=== PATIENT | male | born 1980 | race Caucasian/White ===

== ENCOUNTER 2020-08-12 11:56 | Emergency (ER) | payer OTHER ==
[~2020-08-12] VITALS: Ht 177.8 cm; Wt 78.5 kg
[2020-08-12] MEDS ORDERED: ROSU5TAB5 PO (12:02)
[2020-08-12] MEDS ORDERED: IBUP-1114 PO (12:02)
[2020-08-12] MEDS ORDERED: GI COCKTAIL 50ML BTL(HYOSCYAMINE/MAALOX/LIDOCAINE VISCOUS)(1:3:1) PO ONE (12:15)
--- NOTE | 2020-08-12 12:21 | REP ---
INDICATION: CHEST PAIN. COMPARISON: None. TECHNIQUE: SINGLE PORTABLE AP VIEW OF THE CHEST WAS PERFORMED. FINDINGS: THERE IS NO ACUTE INFILTRATE OR PULMONARY EDEMA. LUNGS ARE CLEAR. HEART IS NOT SIGNIFICANTLY ENLARGED. MEDIASTINAL SILHOUETTE IS UNREMARKABLE. THE VISUALIZED OSSEOUS STRUCTURES ARE INTACT. IMPRESSION: NO ACUTE PULMONARY DISEASE. <Electronically signed by Marlon Medrano > 08/12/20 [id number]
[2020-08-12] MEDS ORDERED: ASPIRIN 325 MG TAB PO ONE (12:30)
[2020-08-12 12:31] LABS: BASO % 0.5 % (0.0-1.0); EOS # 0.1 10^3/uL (0.0-0.5); EOS % 1.4 % (0.0-3.0); HEMATOCRIT 45.7 % (42.0-52.0); HEMOGLOBIN 15.3 g/dl (13.5-17.5); LYMPH # 1.6 10^3/uL (1.5-5.0); MEAN CORPUSCULAR HGB CONC 33.5 g/dl (32.0-36.5); MEAN CORPUSCULAR VOLUME 92.5 fl (80.0-96.0); MONO # 0.5 10^3/uL (0.0-0.8); MONO % 7.8 % (2.0-8.0); NEUTROPHILS # 3.7 10^3/uL (1.5-8.5); PLATELET COUNT, AUTOMATED 245 10^3/uL (150-450); RED BLOOD COUNT 4.94 10^6/uL (4.30-6.10); WHITE BLOOD COUNT 5.9 10^3/uL (4.0-10.0)
[2020-08-12 13:00] LABS: BLOOD UREA NITROGEN 15 MG/DL (7-18); CALCIUM LEVEL 9.1 MG/DL (8.5-10.1); CARBON DIOXIDE LEVEL 31 MEQ/L (21-32); CHLORIDE LEVEL 106 MEQ/L (98-107); CK-MB VALUE MASS 1.4 NG/ML (<3.6); CPK CREATINE PHOSPHOKINASE 115 U/L (39-308); CREATININE FOR GFR 1.03 MG/DL (0.70-1.30); GLOMERULAR FILTRATION RATE > 60.0 (>60); GLUCOSE, FASTING 85 MG/DL (70-100); MB/CK RELATIVE INDEX 1.22 (< OR =4); SODIUM LEVEL 141 MEQ/L (136-145); TROPONIN I < 0.02 NG/ML (< 0.10)
[2020-08-12 13:15] VITALS: BP 123/81
[2020-08-12] MEDS ORDERED: PRIL20TA2 PO (13:16)
--- NOTE | 2020-08-13 00:21 | ECGEPIP ---
[facility] - ED Test Date: 2020-08-12 Pat Name: BERHANE TORRE Department: Room: - Gender: Male Senior Clinical Consultant: LILI : 1980 Requested By: DENA Shay Order Number: [id number] Reading MD: Wilbur Miles Measurements Intervals [place] Rate: 65 P: 55 SD: 146 QRS: 27 QRSD: 96 T: 26 QT: 394 QTc: 409 Interpretive Statements Normal sinus rhythm with sinus arrhythmia POOR R WAVE PROGRESSION NO PRIORS FOR COMPARISON Electronically Signed on 08-13-2020 0:21:17 EST by Wilbur Miles
== END 2020-08-12 13:26 | disposition home or self-care (01) ==
LOC: M ED 11:56
DX: K21.00 Gastro-esophageal reflux disease with esophagitis, without bleeding (principal); E78.5 Hyperlipidemia, unspecified; Z87.820 Personal history of traumatic brain injury

== ENCOUNTER → 2022-07-26 | Outpatient (CLI) | payer OTHER ==
[~2022-07-26] MED LIST: IBUP-1114 PO; PRIL20TA2 PO; ROSU5TAB5 PO
== END ==
LOC: M RAD 08:03
PROVIDERS: ATTEND Nurse Practitioner Family
DX: J34.2 Deviated nasal septum (principal); J32.0 Chronic maxillary sinusitis

== ENCOUNTER 2023-06-25 16:39 | Emergency (ER) | payer OTHER ==
[~2023-06-25] VITALS: Ht 175.3 cm; Wt 77.4 kg
[2023-06-25] MEDS ORDERED: OXYC-517 (16:50)
[2023-06-25] MEDS ORDERED: HYDR50TA70 (16:50)
[2023-06-25] MEDS ORDERED: BOOSTRIX VACCINE (TETANUS/DIPHTH/ACEL. PERTUSSIS) 0.5ML SYR IM ONE (18:00)
[2023-06-25] MEDS ORDERED: LIDOCAINE 2% MDV 20ML VIAL SC ONE (18:00)
[2023-06-25] MEDS ORDERED: CEPH500C PO (18:39)
[2023-06-25] MEDS ORDERED: CEPHALEXIN 500 MG CAP PO ONE (18:40)
[2023-06-25 18:58] VITALS: BP 135/75; TEMP 98.8; O2SAT 100
== END 2023-06-25 18:56 | disposition home or self-care (01) ==
LOC: M ED 16:39
DX: S60.551A Superficial foreign body of right hand, initial encounter (principal); W45.0XXA Nail entering through skin, initial encounter; E78.5 Hyperlipidemia, unspecified; Z79.2 Long term (current) use of antibiotics; Z79.899 Other long term (current) drug therapy; Y92.009 Unspecified place in unspecified non-institutional (private) residence as the place of occurrence of the external cause; Y93.89 Activity, other specified; Y99.9 Unspecified external cause status; Z23 Encounter for immunization

== ENCOUNTER 2023-09-26 08:43 | Day surgery (SDC) | payer OTHER ==
[~2023-09-26] VITALS: Ht 175.3 cm; Wt 77.3 kg
[~2023-09-26 08:43] MED LIST changes: +CEPH500C PO; +HYDR50TA70; +OXYC-517; +ROSU40TA4 PO
[2023-09-26] MEDS: LR 1,000 ML IV SCH ×2 (09:23→13:09)
[2023-09-26] MEDS ORDERED: MIDAZOLAM INJ 2MG/2ML VIAL As Ordered ONE (09:48)
[2023-09-26] MEDS ORDERED: fentaNYL 100 MCG/2 ML INJECTION As Ordered ONE (09:50)
[2023-09-26] MEDS ORDERED: LIDOCAINE 2% 100MG/5ML SDV (FOR ANES.) As Ordered ONE (09:53)
[2023-09-26] MEDS ORDERED: ONDANSETRON 4MG 2ML VIAL As Ordered ONE (09:53)
[2023-09-26] MEDS ORDERED: SUGAMMADEX SODIUM 500 MG/5 ML VIAL (BRIDION) As Ordered ONE (09:53)
[2023-09-26] MEDS ORDERED: propofoL 200 MG/20 ML VIAL As Ordered ONE (09:53)
[2023-09-26] MEDS ORDERED: ROCURONIUM BROMIDE 50MG/5ML VIAL As Ordered ONE (09:53)
[2023-09-26] MEDS ORDERED: HYDROmorphone HCL 2MG/ML 1ML VIAL As Ordered ONE (10:14)
[2023-09-26] MEDS: COCAINE 4% 4ML NASAL SOLUTION BTL As Ordered ONE (11:16)
[2023-09-26] MEDS ORDERED: ACETAMINOPHEN 1000MG 100ML IV BAG As Ordered ONE (11:17)
[2023-09-26] MEDS: LIDOCAINE W/EPINEPHRINE 1% 20ML VIAL As Ordered ONE (11:35)
[2023-09-26] MEDS: OXYMETAZOLINE 0.05% NASAL SPRAY (AFRIN) As Ordered ONE (12:16)
[2023-09-26] MEDS ORDERED: ONDANSETRON 4MG 2ML VIAL IV PRN (12:30)
[2023-09-26] MEDS ORDERED: METOCLOPRAMIDE INJ 10MG/2ML VIAL IV PRN (12:30)
[2023-09-26] MEDS ORDERED: fentaNYL 100 MCG/2 ML INJECTION IV PRN (12:30)
[2023-09-26] MEDS ORDERED: HYDROMORPHONE HCL 0.5 MG/ 0.5 ML SYRINGE IV PRN (12:30)
[2023-09-26] MEDS: oxyCODONE 5MG TAB PO PRN (13:09)
[2023-09-26 14:20] VITALS: BP 125/74; TEMP 97.6; O2SAT 98
== END 2023-09-26 14:20 | disposition home or self-care (01) ==
LOC: M SDC 08:43
PROVIDERS: ATTEND Otolaryngology
DX: J34.2 Deviated nasal septum (principal); J34.3 Hypertrophy of nasal turbinates; E78.00 Pure hypercholesterolemia, unspecified; M54.9 Dorsalgia, unspecified; H91.90 Unspecified hearing loss, unspecified ear; F41.9 Anxiety disorder, unspecified; F32.A Depression, unspecified; Z79.891 Long term (current) use of opiate analgesic; Z79.899 Other long term (current) drug therapy
CPT/HCPCS: 30140; 30520; C9143; J0131; J1100; J1170; J2250; J2405; J3010

== ENCOUNTER → 2024-03-05 | Outpatient (REF) ==
[~2024-03-05] MED LIST changes: -ROSU40TA4 PO; +ROSU40TA81 PO; +ROSU5TAB40 PO; -ROSU5TAB5 PO
== END ==
LOC: M PLAIMG 11:52
PROVIDERS: ATTEND Internal Medicine
DX: R52 Pain, unspecified (principal)

== ENCOUNTER → 2024-09-28 | Outpatient (CLI) | payer OTHER ==
[~2024-09-28] MED LIST changes: -ROSU5TAB40 PO; +ROSU5TAB49 PO
== END ==
LOC: M EKG 11:23
PROVIDERS: ATTEND Registered Nurse
DX: R00.2 Palpitations (principal)

== ENCOUNTER → 2024-11-29 | Outpatient (CLI) | payer OTHER | LOC: M PLAIMG 14:35 | PROVIDERS: ATTEND Registered Nurse | DX: R94.31 Abnormal electrocardiogram [ECG] [EKG] (principal); R06.02 Shortness of breath; R07.9 Chest pain, unspecified; I36.1 Nonrheumatic tricuspid (valve) insufficiency; I37.1 Nonrheumatic pulmonary valve insufficiency ==